=== PATIENT | male | born 1945 | race Caucasian/White ===

== ENCOUNTER 2022-05-30 14:25 | Outpatient (REF) | payer BC, SELFPAY ==
[2022-05-30 16:07] LABS: Vitamin B12 512 pg/mL (200-900)
[2022-06-01 02:25] LABS: Lyme Abs Screen <0.90 index
== END 2022-05-30 14:26 | disposition home or self-care (01) ==
LOC: HO.LAB 14:25
PROVIDERS: PCP Internal Medicine; Visit Provider Psychiatry & Neurology Neurology
DX: I67.89 Other cerebrovascular disease (principal)
CPT/HCPCS: 36415; 82607; 86617; 86618

== ENCOUNTER 2025-07-15 13:54 | Outpatient (AMB) | payer BC, SELFPAY ==
--- NOTE | 2025-07-15 14:02 | MHC.OFFVIS ---
Intake Visit Reasons: 3 Months/ AD Accompanied by: Spouse Allergies No Known Allergies Allergy (Verified 07/15/25 14:03) Medication List - Last Reconciled 07/15/25 by Jada Gutierrez CNP atorvastatin 10 mg PO BEDTIME donepezil 10 mg PO BEDTIME lisinopril 10 mg PO DAILY memantine 10 mg PO BID sertraline 25 mg PO DAILY HPI Comments Details: 79 yo man with expressive aphasia suggestive of a degenerative dementing illness. He was here with his . He was doing okay. He was taking memantine 10mg twice a day which they both thought seemed to have helped some. Speech was stable. He still needed some help with routine activities, like setting up toothbrush to brush teeth. No falls. Mood was okay. Sleep was okay. [facility] Medical History (Updated 07/15/25 @ 14:06 by Jada Gutierrez CNP) Expressive aphasia Multifactorial dementia Cerebral microvascular disease CRI (chronic renal insufficiency) Alcohol abuse Alzheimer dementia Review of Systems Const Denies chills, Denies daytime sleepiness, Denies difficulty sleeping, Denies fatigue, Denies fever(s), Denies frequent falls, Denies headache(s), Denies increased appetite, Denies poor appetite, Denies snoring, Denies weakness, Denies weight gain and Denies weight loss Eyes Denies loss of vision ENT Denies vertigo, Denies dizziness and Denies headache(s) Card Denies chest pain at rest, Denies chest pain with activity, Denies syncope, Denies leg edema and Denies palpitations Resp Denies snoring GI Denies constipation, Denies heartburn, Denies diarrhea and Denies nausea Denies urinary frequency, Denies urinary incontinence and Denies urinary urgency Musc Denies abnormal gait, Denies numbness and Denies tingling Skin/Breast Denies dry skin and Denies rash Neuro Denies abnormal gait, Denies vertigo, Denies dizziness, Denies syncope, Denies frequent falls, Denies headache(s), Denies lack of coordination, Denies loss of vision, Reports memory loss, Denies numbness, Denies restless legs, Denies seizure-like activity, Denies tingling, Denies paresthesias, Denies tremor(s) and Denies weakness Psych Denies anxiety, Denies depression, Denies auditory hallucinations, Reports memory loss, Denies visual hallucinations and Denies suicidal ideation Endo Denies fatigue and Denies palpitations Physical Exam Const Other: General Appearance:? normal, in no acute distress. Skin:? no rashes, no significant birthmarks. Heart:? S1, S2 normal, no murmurs. Lungs:? clear anteriorly and posteriorly. Extremities:? no edema. Psych:? alert, cooperative with exam. Neuro Other: Mental Status:?He is alert and awake with dec sp speech, dec fluency, intact comprehension, intact naming, intact repition, dec writing, intact reading Cranial Nerves:?Pupils are equal, round and reactive to light. External occular muscles are intact. Visual her are full. Face is symmetrical. Facial sensations are normal. Tongue is midline. Palate elevates symmetrically. Shoulder shrugging is normal. Hearing to bedside conversation is normal. Sensory Exam:?....? Coordination:?No ataxia,?no titubation.? Gait Exam: Within normal limits. Cerebellar Signs:?[id number] is okay. Extrapyramidal System:?No tremor, rigidity with normal facial expressions.? Pronator Drift:?Not present.? Involuntary Movements:?No tremors seen.? Speech:?As above.? Results Reviewed Results Reviewed: MRI brain WO at [facility] in May 2022: mod severe diff atrophy, mod severe MVD, more so on left side. Assessment & Plan Assessment & Plan (1) Alzheimer dementia: Code(s): G30.9 - Alzheimer's disease, unspecified; F02.80 - Dementia in other diseases classified elsewhere, unspecified severity, without behavioral disturbance, psychotic disturbance, mood disturbance, and anxiety Category: Medical Qualifiers: Alzheimer's disease onset: unspecified onset Dementia severity: unspecified severity Dementia behavioral or psychological symptom: with mood disturbance Qualified Code(s): G30.9 - Alzheimer's disease, unspecified; F02.83 - Dementia in other diseases classified elsewhere, unspecified severity, with mood disturbance Plan: Continue donepezil 10mg 1 tablet at bedtime Continue memantine 10mg 1 tablet twice a day Continue sertraline 25mg 1 tablet daily (2) Expressive aphasia: Code(s): R47.01 - Aphasia Category: Medical Plan . Coding Level of Care Code Est Pt Level 4 (61747) Diagnoses Alzheimer's dementia with mood disturbance, unspecified dementia severity, unspecified timing of dementia onset G30.9; F02.83 Alzheimer's disease onset: unspecified onset Dementia severity: unspecified severity Dementia behavioral or psychological symptom: with mood disturbance Expressive aphasia R47.01
== END 2025-07-15 14:15 | disposition home or self-care (01) ==
LOC: HO.HSM 13:55
PROVIDERS: PCP Internal Medicine; Referring Provider Internal Medicine; Visit Provider Registered Nurse
DX: G30.9 Alzheimer's disease, unspecified (principal); F02.83 Dementia in other diseases classified elsewhere, unspecified severity, with mood disturbance; R47.01 Aphasia
CPT/HCPCS: 99214